=== PATIENT | male | born 1965 | race Caucasian/White ===

== ENCOUNTER 2017-07-13 08:42 | Emergency (ER) | payer OTHER ==
[~2017-07-13] VITALS: Ht 170.2 cm; Wt 78.9 kg
[2017-07-13] MEDS ORDERED: MECLIZINE HCL25 MG PO (13:28)
== END 2017-07-13 16:06 | disposition home or self-care (01) ==
LOC: ER 08:42
DX: R42 Dizziness and giddiness (principal)